=== PATIENT | female | born 1980 | race Caucasian/White ===

== ENCOUNTER 2021-01-23 22:06 | Emergency (ER) | payer BC, OTHER | END 2021-01-23 23:58 | disposition home or self-care (01) | LOC: CSHERS 22:06 | DX: S82.61XA Displaced fracture of lateral malleolus of right fibula, initial encounter for closed fracture (principal); W01.0XXA Fall on same level from slipping, tripping and stumbling without subsequent striking against object, initial encounter | CPT/HCPCS: 29515 ==

== ENCOUNTER 2021-04-22 05:40 | Inpatient (IN) | payer BC, OTHER ==
[2021-04-19 19:31] LABS: Hemoglobin 11.8 g/dL (12.0-15.5); Mean Corpuscular HGB CONC 31.2 g/dL (32.0-36.0); Mean Corpuscular Hemoglobin 27.8 pg (27.0-33.0); Mean Corpuscular Volume 88.9 fl (81.6-98.3); Mean Platelet Volume 11.4 fl (7.4-10.4); Platelet Count 189 10x3/uL (150-450); RBC Distribution Width 15.4 % (11.5-14.5); Red Blood Cell (RBC) Count 4.25 10x6/uL (3.90-5.03); White Blood Cell (WBC) Count 6.4 10x3/uL (3.5-10.5)
[2021-04-19 20:04] LABS: HIV (1/2) Antibody/Antigen Non-Reactive (NonReactive); HIV 1/2 INDEX 0.07 S/CO (<1.00); Syphilis Antibody Nonreactive (Nonreactive); Syphilis Antibody Index 0.02 S/CO (<1.00 Non-Reactive)
[2021-04-20 14:22] LABS: HBSAB Concentration Less than 8.00 mIU/mL; Hep B Surf AB Non-Reactive (NonReactive)
[2021-04-20 17:55] LABS: SARS-CoV-2 PCR by NAA Not Detected (NotDetected)
[2021-04-22] MEDS ORDERED: hydrALAZINE 20 MG/ML VIAL SLOW IVP PRN ×2 (05:58→13:22)
[2021-04-22] MEDS ORDERED: Famotidine/PF 20 mg/2ml Vial SLOW IVP PRN (05:58)
[2021-04-22] MEDS ORDERED: Ondansetron PF 4 MG/2 ML Vial IVP PRN ×3 (05:58→13:22)
[2021-04-22] MEDS ORDERED: Promethazine HCl 25 MG/ML VIAL IM PRN ×3 (05:58→13:22)
[2021-04-22] MEDS ORDERED: Bicitra 30 ML UDCUP PO PRN (05:58)
[2021-04-22] MEDS ORDERED: Lactated Ringer's 1,000 ML IV SCH (05:58)
[2021-04-22 06:03] VITALS: BMI 37.7
[2021-04-22] MEDS ORDERED: ceFAZolin 2 GM/Dextrose 50 ML 2 GM in Premix Bag 1 BAG IVPB SCH (06:15)
[2021-04-22] MEDS ORDERED: Morphine PF 10 MG/10 ML VIAL ONE (07:16)
[2021-04-22] MEDS ORDERED: Phenylephrine 40 MG/NS 250 ML 250 ML ONE (07:16)
[2021-04-22] MEDS ORDERED: Dexamethasone 4 mg/ml Vial ONE (07:16)
[2021-04-22] MEDS ORDERED: Ondansetron PF 4 MG/2 ML Vial ONE (07:16)
[2021-04-22] MEDS ORDERED: Oxytocin 10 UNITS/ML VIAL ONE ×3 (07:16→08:12)
[2021-04-22] MEDS ORDERED: CEFAZOLIN 1 GM VIAL ONE (07:37)
[2021-04-22] MEDS ORDERED: Ketorolac Tromethamine 30 MG/ML VIAL ONE (09:08)
[2021-04-22] MEDS ORDERED: Ketorolac Tromethamine 30 MG/ML VIAL IVP PRN (09:54)
[2021-04-22] MEDS ORDERED: Naloxone HCl 0.4 mg/ml Vial IV PRN (09:54)
[2021-04-22] MEDS ORDERED: diphenhydrAMINE 50 MG/ML VIAL IVP PRN (09:54)
[2021-04-22] MEDS ORDERED: Meperidine HCl/PF 25 MG/ML VIAL SLOW IVP PRN (09:54)
[2021-04-22] MEDS ORDERED: L&D-Morphine 4 MG/ML VIAL SLOW IVP PRN (09:54)
[2021-04-22] MEDS ORDERED: Naloxone HCl 0.4 mg/ml Vial IVP PRN ×2 (09:54)
[2021-04-22] MEDS ORDERED: Ondansetron HCl/PF 4 MG/2 ML Vial IVP PRN (09:54)
[2021-04-22] MEDS ORDERED: Fentanyl 100 MCG/2 ML VIAL SLOW IVP PRN (09:54)
[2021-04-22] MEDS ORDERED: Hydrocerin (Eucerin) Cream 120 gm Jar TOP PRN (09:54)
[2021-04-22] MEDS ORDERED: Promethazine HCl 25 MG SUPP PR PRN (09:54)
[2021-04-22] MEDS ORDERED: Communication Order-Pharmacy FS SCH (10:00)
[2021-04-22] MEDS ORDERED: Ketorolac Tromethamine 30 MG/ML VIAL IVP SCH (10:00)
[2021-04-22] MEDS ORDERED: Boostrix 0.5 ML (Tdap) VIAL IM ONE (13:22)
[2021-04-22] MEDS ORDERED: diphenhydrAMINE 25 MG CAP PO PRN (13:22)
[2021-04-22] MEDS ORDERED: Lanolin Ointment 7 GM TUBE TOP PRN (13:22)
[2021-04-22] MEDS ORDERED: Simethicone Chewable 80 MG TAB PO PRN (13:22)
[2021-04-23] MEDS: Docusate 100 MG CAP PO SCH ×3 (00:18→21:04)
[2021-04-23] MEDS: Ferrous Sulfate 325 MG TAB PO SCH ×3 (00:19→21:04)
[2021-04-23 04:26] LABS: Hemoglobin 8.5 g/dL (12.0-15.5); Mean Corpuscular HGB CONC 33.2 g/dL (32.0-36.0); Mean Corpuscular Hemoglobin 28.9 pg (27.0-33.0); Mean Corpuscular Volume 87.1 fl (81.6-98.3); Mean Platelet Volume 10.4 fl (7.4-10.4); Platelet Count 144 10x3/uL (150-450); RBC Distribution Width 15.9 % (11.5-14.5); Red Blood Cell (RBC) Count 2.94 10x6/uL (3.90-5.03); White Blood Cell (WBC) Count 8.4 10x3/uL (3.5-10.5)
[2021-04-23] MEDS: HYDROcodone/Acetaminophen 5/325 mg Tablet PO PRN ×3 (05:57→16:43)
[2021-04-23] MEDS: Prenatal Vitamin 1 TAB PO SCH (08:34)
[2021-04-23] MEDS: Ibuprofen 800 MG TAB PO SCH ×2 (14:46→21:04)
[2021-04-24] MEDS: HYDROcodone/Acetaminophen 5/325 mg Tablet PO PRN (04:16)
[2021-04-24] MEDS: Ibuprofen 800 MG TAB PO SCH (06:00)
[2021-04-24] MEDS: Docusate 100 MG CAP PO SCH (08:09)
[2021-04-24] MEDS: Ferrous Sulfate 325 MG TAB PO SCH (08:10)
[2021-04-24] MEDS: Prenatal Vitamin 1 TAB PO SCH (08:10)
[2021-04-24 09:11] VITALS: BP 109/58; TEMP 98.2
== END 2021-04-24 14:10 | disposition home or self-care (01) | DRG 788 ==
LOC: CSHLD 05:40 → CSHPP 13:05
PROVIDERS: ADMIT Obstetrics & Gynecology; ATTEND Obstetrics & Gynecology
PROC: 10D00Z1 Extraction of Products of Conception, Low, Open Approach (ICD-10-PCS; principal; 2021-04-22)
DX: O34.211 Maternal care for low transverse scar from previous cesarean delivery (principal); Z3A.39 39 weeks gestation of pregnancy; Z37.0 Single live birth; Z20.822 Contact with and (suspected) exposure to COVID-19; O99.824 Streptococcus B carrier state complicating childbirth; O99.02 Anemia complicating childbirth; D64.9 Anemia, unspecified; O99.62 Diseases of the digestive system complicating childbirth; K66.0 Peritoneal adhesions (postprocedural) (postinfection); O32.8XX0 Maternal care for other malpresentation of fetus, not applicable or unspecified
CPT/HCPCS: 36415; 51702; 85027; 86706; 86780; 86850; 86900; 86901; 87389; J0690; J1100; J1885; J2274; J2405; J2590; U0003; U0005